=== PATIENT | female | born 1975 | race Caucasian/White ===

== ENCOUNTER 2016-06-03 07:49 | Day surgery (SDC) | payer OTHER ==
[~2016-06-03] VITALS: Ht 167.6 cm; Wt 94.1 kg
[2016-06-03] VITALS (9 sets, daily range): BP systolic 92–142; BP diastolic 47–83; PULSE 60–78; RESP 16–20; TEMP 97.4–98.4; O2SAT 97–100
[~2016-06-03 07:49] MED LIST: CIPR500T4 PO; HYDR-3533 PO; METR-1 PO; PROM25TA5 PO
[2016-06-03] MEDS ORDERED: PRIL20CA9 PO (08:10)
[2016-06-03] MEDS ORDERED: SODIUM CHLOR 0.9% 1000 ML IV SCH (08:15)
[2016-06-03] MEDS ORDERED: LIDOCAINE 1%/EPINEPHrine 1:100,000 SOLN 20 ML VIAL ONE (08:29)
[2016-06-03] MEDS ORDERED: fentaNYL CITRATE 250 MCG/5 ML AMP ONE (09:01)
[2016-06-03] MEDS ORDERED: MIDAZOLAM HCL 5 MG/5 ML VIAL ONE (09:01)
[2016-06-03] MEDS ORDERED: HYDROmorphone HCL 2 MG TAB PO PRN (09:15)
--- NOTE | 2016-06-03 09:24 | PD.RAD ---
Post CT Procedure Prog Note Pre Procedure Diagnosis: (1) Abnormal LFTs (liver function tests) Post Procedure Diagnosis: (1) Abnormal LFTs (liver function tests) Procedure Date: Jun 03, 2016 Supervising Radiologist: Yair Guerra Estimated blood loss: 0 Anesthesia: Conscious Sedation Plan of Activity [facility] Patient Condition: Good See PACS Report for procedural detail/treatment Biopsy Imaging Guidance: CT Side: Right Biopsy Procedure: Liver Specimen: Core Biopsy Plan [facility] Brown Steven G. MD Jun 03, 2016 09:24
--- NOTE | 2016-06-03 11:18 | RADRPT ---
EXAM DATE/TIME: 06/03/2016 09:05 [facility] COMPARISON: No previous studies available for comparison. INDICATIONS : Elevated liver function and antimitochondrial antibody. SEDATION TIME: 30 minutes BIOPSY SITE: Right MEDICATION(S): 1.) 2 mg midazolam (Versed) IV 2.) 100 mcg fentanyl (Sublimaze) IV DEVICE(S): 1.) 18 gauge BioPince needle MEDICAL HISTORY : None. SURGICAL HISTORY : None. ENCOUNTER: Initial ACUITY: 1 day PAIN SCORE: 0/10 LOCATION: Right A total of one core specimen(s) were obtained and sent to the laboratory for pathologic evaluation. PROCEDURE: 1. CT guided liver biopsy. 2. Conscious sedation with continuous EKG and oximetry monitoring. 3. EKG and oximetry remained stable throughout the procedure. Prior to the procedure informed consent was obtained. Any appropriate prior imaging studies were rev iewed. The site was prepped in a sterile fashion. Full sterile technique was used, including cap, mask, kael rile gloves and gown and a large sterile sheet. Hand hygiene and 2% chlorhexidine and/or betadine/al cohol prep was utilized per protocol for cutaneous antisepsis. The skin and subcutaneous tissues wer e infiltrated with local anesthetic solution. Under CT guidance 18 gauge core was obtained. Follow-up CT scan reveals no hemorrhage. The patient tolerated the procedure well and there were no complications. The patient was returned to the Radiology Outpatient Unit in stable condition. CONCLUSION: Uncomplicated CT guided biopsy. Yair Guerra MD FACR on June 03, 2016 at 11:17 Board Certified Radiologist. This report was verified electronically.
== END 2016-06-03 15:05 | disposition home or self-care (01) ==
LOC: HRIP 07:49 → HRAD 07:49 → EDSTATUS 08:00 → HRAD 15:05
PROVIDERS: ATTEND Internal Medicine Gastroenterology
DX: R76.8 Other specified abnormal immunological findings in serum (principal)
CPT/HCPCS: 47000; 77012; 88307; 88313; J2250; J3010; J7030

== ENCOUNTER 2016-07-14 18:55 | Emergency (ER) | payer MEDICAID, OTHER ==
[~2016-07-14] VITALS: Ht 160 cm; Wt 94.7 kg
[~2016-07-14 18:55] MED LIST changes: -CIPR500T4 PO; -HYDR-3533 PO; -METR-1 PO; +PRIL20CA9 PO; -PROM25TA5 PO
[2016-07-14 19:08] VITALS: BP 151/86; PULSE 68; RESP 18; TEMP 97.1; O2SAT 100
--- NOTE | 2016-07-14 21:44 | PD ---
HPI Chief Complaint: GI Complaint Time Seen by Provider: 21:31 Travel History International Travel<30 days: No Contact w/Intl Traveler<30days: No Traveled to known affect area: No History of Present Illness HPI This 41-year-old female is complaining of severe abdominal pain. She says she had some bad abdominal pain yesterday. It started around 6:00 in apparently resolved around bedtime. Today the pain started 3 and his ongoing. She says at its a level of 10 out of 10. He dislocated in the right side of the epigastric area. There is been no vomiting or diarrhea. She was told when she was in 2013 that she had a gallstone but she has not heard anything about it since. She does see past week on a regular basis. She had endoscopy done about a month ago which she was told was normal. She did have some abnormal liver function tests and had a biopsy of her liver was also normal PFSH Past Medical History Cancer: No Cardiovascular Problems: Yes (AGE 13 MURMUR) Diabetes: No Diminished Hearing: No Gastrointestinal Disorders: Yes ("GALLSTONES") GERD: Yes Hepatitis: No Hiatal Hernia: No Respiratory: No Thyroid Disease: No ?: Not LMP: 07/01/16 Ovarian Cysts: Yes Tubal Ligation: Yes Past Surgical History Section: Yes (X2) Ear Surgery: Yes (BILAT TUBES IN EARS) Gynecologic Surgery: Yes (C SECTION, LEFT OVARIAN CYST) Pacemaker: No Tonsillectomy: Yes Other Surgery: Yes Social History Alcohol Use: Yes (RARE) Tobacco Use: No Substance Use: No Allergies-Medications (Allergen,Severity, Reaction): Coded Allergies: Demerol (Verified Allergy, Severe, 07/14/16) Reported Meds & Prescriptions Reported Meds & Active Scripts Active Reported Prilosec (Omeprazole) 20 Mg Cap 20 Mg PO DAILY Review of Systems General / Constitutional: No: Fever, Chills Eyes: No: Diploplia, Blurred Vision HENT: No: Headaches, Vertigo Cardiovascular: No: Chest Pain or Discomfort, Palpitations Respiratory: No: Cough, Shortness of Breath Gastrointestinal: Positive: Abdominal Pain, No: Hematochezia Genitourinary: No: Frequency, Dysuria Musculoskeletal: No: Myalgias, Arthralgias Skin: No Rash, No Itching Psychiatric: No: Anxiety Physical Exam Narrative GENERAL: Well-developed female SKIN: Warm and dry. HEAD: Atraumatic. Normocephalic. EYES: Pupils equal and round. No scleral icterus. No injection or drainage. ENT: No nasal bleeding or discharge. Mucous membranes pink and moist. NECK: Trachea midline. No JVD. CARDIOVASCULAR: Regular rate and rhythm. No murmur appreciated. RESPIRATORY: No accessory muscle use. Clear to auscultation. Breath sounds equal bilaterally. GASTROINTESTINAL: Abdomen soft, there is some right upper quadrant tenderness without guarding or rigidity MUSCULOSKELETAL: No obvious deformities. No clubbing. No cyanosis. No edema. NEUROLOGICAL: Awake and alert. No obvious cranial nerve deficits. Motor grossly within normal limits. Normal speech. PSYCHIATRIC: Appropriate mood and affect; insight and judgment normal. Data Data Last Documented VS Vital Signs Date Time Temp Pulse Resp B/P Pulse Ox O2 Delivery O2 Flow Rate FiO2 07/14/16 22:44 75 18 116/72 95 Room Air 07/14/16 19:08 97.1 Orders Complete Blood Count With Diff (07/14/16 21:41) Comprehensive Metabolic Panel (07/14/16 21:41) Lipase (07/14/16 21:41) Us Abdomen Gallbladder (07/14/16 21:41) Sodium Chlor 0.9% 1000 Ml Inj (Ns 1000 M (07/14/16 21:45) Ondansetron Inj (Zofran Inj) (07/14/16 21:45) Hydromorphone Pf Inj (Dilaudid Pf Inj) (07/14/16 21:45) Labs Laboratory Tests Test 07/14/16 22:05 White Blood Count 8.6 TH/MM3 Red Blood Count 4.34 MIL/MM3 Hemoglobin 12.6 GM/DL Hematocrit 36.4 % Mean Corpuscular Volume 84.0 FL Mean Corpuscular Hemoglobin 29.1 PG Mean Corpuscular Hemoglobin 34.7 % Concent Red Cell Distribution Width 13.0 % Platelet Count 265 TH/MM3 Mean Platelet Volume 8.6 FL Neutrophils (%) (Auto) 81.2 % Lymphocytes (%) (Auto) 13.9 % Monocytes (%) (Auto) 4.4 % Eosinophils (%) (Auto) 0.2 % Basophils (%) (Auto) 0.3 % Neutrophils # (Auto) 7.0 TH/MM3 Lymphocytes # (Auto) 1.2 TH/MM3 Monocytes # (Auto) 0.4 TH/MM3 Eosinophils # (Auto) 0.0 TH/MM3 Basophils # (Auto) 0.0 TH/MM3 CBC Comment DIFF FINAL Differential Comment Sodium Level 141 MEQ/L Potassium Level 3.7 MEQ/L Chloride Level 105 MEQ/L Carbon Dioxide Level 27.6 MEQ/L Anion Gap 8 MEQ/L Blood Urea Nitrogen 6 MG/DL Creatinine 0.85 MG/DL Estimat Glomerular Filtration 74 ML/MIN Rate Random Glucose 114 MG/DL Calcium Level 8.7 MG/DL Total Bilirubin 0.8 MG/DL Aspartate Amino Transf 174 U/L (AST/SGOT) Alanine Aminotransferase 133 U/L (ALT/SGPT) Alkaline Phosphatase 309 U/L Total Protein 7.6 GM/DL Albumin 3.7 GM/DL Lipase 93 U/L [facility] Medical Decision Making Medical Screen Exam Complete: Yes Emergency Medical Condition: Yes Medical Record Reviewed: Yes Differential Diagnosis Differential includes cholelithiasis, cholecystitis, ulcer disease Narrative Course Ultrasound shows multiple gallstones. There is some mild elevation of her transaminases which has been present for some time and which led to a liver biopsy not too long ago. Patient is stable for discharge with instructions to call Gen. surgery for follow-up Diagnosis Primary Impression: Cholelithiasis Qualified Code: K80.20 - Calculus of gallbladder without cholecystitis without obstruction Scripts Oxycodone-Acetaminophen (Percocet)7.5-325 mg Tab1 Tab PO Q4H PRN (PAIN) #20 TAB Ref 0 Prov:Kelvin Thomson MD 07/14/16 Disposition: DISCHARGE HOME Condition: Stable Kelvin Thomson MD Jul 14, 2016 21:44
[2016-07-14] MEDS ORDERED: HYDROmorphone HCL PF 1 MG/ML VIAL IV PUSH ONE (21:45)
[2016-07-14] MEDS ORDERED: ONDANSETRON HCL 4 MG/2 ML VIAL IV PUSH ONE ×2 (21:45→23:45)
[2016-07-14] MEDS ORDERED: SODIUM CHLOR 0.9% 1000 ML INJ 1,000 ML IV SCH (21:45)
[2016-07-14 22:18] LABS: BASOPHIL % 0.3 % (0.0-2.0); EOSINOPHIL % 0.2 % (0.0-4.0); HEMATOCRIT 36.4 % (35.0-46.0); HEMO FLAGS DIFF FINAL; LYMPH % 13.9 % (9.0-44.0); LYMPHOCYTE # 1.2 TH/MM3 (1.0-4.8); MEAN CORPUSCULAR HEMOGLOBIN 29.1 PG (27.0-34.0); MEAN CORPUSCULAR HGB CONC 34.7 % (32.0-36.0); MONO % 4.4 % (0.0-8.0); NEUT % 81.2 % (16.0-70.0); PLATELET COUNT 265 TH/MM3 (150-450); RED BLOOD COUNT 4.34 MIL/MM3 (4.00-5.30); WHITE BLOOD COUNT 8.6 TH/MM3 (4.0-11.0)
[2016-07-14 22:25] LABS: CHLORIDE 105 MEQ/L (98-107); POTASSIUM 3.7 MEQ/L (3.5-5.1); SODIUM (NA) 141 MEQ/L (136-145)
[2016-07-14 22:29] LABS: ANION GAP 8 MEQ/L (5-15); BICARBONATE 27.6 MEQ/L (21.0-32.0)
[2016-07-14 22:30] LABS: BLOOD UREA NITROGEN 6 MG/DL (7-18)
[2016-07-14 22:32] LABS: ALT (GPT) 133 U/L (10-53); AST (GOT) 174 U/L (15-37); GLOMERULAR FILTRATION RATE 74 ML/MIN (>89)
[2016-07-14 22:34] LABS: TOTAL BILIRUBIN ADULT 0.8 MG/DL (0.2-1.0)
[2016-07-14 22:35] LABS: ALKALINE PHOSPHATASE 309 U/L (45-117)
[2016-07-14 22:44] VITALS: BP 116/72; PULSE 75; RESP 18; O2SAT 95
--- NOTE | 2016-07-14 22:55 | RADHPO ---
EXAM DATE/TIME: 07/14/2016 22:31 [facility] COMPARISON: CT ABDOMEN & PELVIS W CONTRAST, December 10, 2015, 19:02. INDICATIONS : Right upper quadrant pain. MEDICAL HISTORY : Gastroesophageal reflux disease. Cholelithiasis. Ovarian cysts. SURGICAL HISTORY : Tonsillectomy. section. Tubal ligation. Left ovarian cyst removed. ENCOUNTER: Initial ACUITY: 2 days PAIN SCORE: 8/10 LOCATION: Right upper quadrant MEASUREMENTS: LIVER: 13.5 cm length COMMON DUCT: 4 mm RIGHT KIDNEY: 9.4 x 5.0 x 6.0 cm FINDINGS: LIVER: Normal echotexture without focal lesion or ductal dilatation. COMMON DUCT: No intraluminal mass or stone visualized. GALLBLADDER: Contains multiple mobile and non-mobile stones near the neck the largest being 2.3 cm in size. Gallbl adder wall is thickened at 4 mm PANCREAS: The visualized portions are within normal limits. RIGHT KIDNEY: No evidence of hydronephrosis, stone, or mass. CONCLUSION: Multiple gallstones. Gallbladder wall thickening at 4 mm. No bile duct dilatation Dilan Valero MD on July 14, 2016 at 22:52 Board Certified Radiologist. This report was verified electronically.
[2016-07-14] MEDS ORDERED: PERC7.5T13 PO (23:09)
[2016-07-14 23:47] VITALS: BP 109/68; PULSE 91; RESP 18; O2SAT 96
== END 2016-07-15 00:23 | disposition home or self-care (01) ==
LOC: PHED 18:55
DX: K80.20 Calculus of gallbladder without cholecystitis without obstruction (principal)
CPT/HCPCS: 76705; 80053; 83690; 85025; 96361; 96374; 96375; 96376; 99284; J1170; J2405; J7030

== ENCOUNTER → 2016-09-02 | Day surgery (SDC) | payer OTHER ==
[~2016-09-02] MED LIST changes: +ACETAMINOPHEN 1000 MG/100 ML VIAL IV ONE; +ACETAMINOPHEN/HYDROcodone 325 MG/5 MG TAB ONE; +APREPITANT 40 MG CAP ONE; +BUPIVACAINE/EPINEPHRINE 0.25% 50 ML VIAL ONE; +KETOROLAC TROMETHAMINE 30 MG/ML (IVP) VIAL IV PUSH ONE; +LACTATED RINGER'S 1000 ML INJ 1,000 ML ONE; +MIDAZOLAM HCL 2 MG/2 ML VIAL ONE; +MORPHINE SULFATE 4 MG/ML INJ ONE; +NEOMYCIN/POLYMYXIN/BACITRACIN OINT 15 GM TUBE ONE; +ONDANSETRON HCL 4 MG/2 ML VIAL IV PUSH ONE; +PERC7.5T13 PO; +PROPOFOL 200 MG/20 ML AMP IV ONE; +ceFAZolin 2 GM PREMIX 50 ML ONE; +metroNIDAZOLE 500 MG INJ 100 ML IV ONE
--- NOTE | 2016-09-02 09:44 | TN ---
cc: ARABELLA LOU M.D. DATE OF SURGERY: 09/02/2016 PREOPERATIVE DIAGNOSIS Chronic calculous cholecystitis and verrucous skin lesion left posterior hand. POSTOPERATIVE DIAGNOSES Chronic calculous cholecystitis and verrucous skin lesion left posterior hand. PROCEDURE Laparoscopic cholecystectomy and excision of 8 mm verrucous skin lesion left posterior hand. SURGEON: Arabella Lou MD. ANESTHESIA General INDICATIONS Very pleasant 41-year-old woman who has had several episodes of upper abdominal pain, worse after fatty foods. She required evaluation in the emergency department. Ultrasound showed stones in gallbladder wall thickening. She has had transient elevated liver function test, but not elevated total bilirubin. She incidentally discovered verrucous skin lesion on the posterior left hand. She desired excision. INTRAOPERATIVE FINDINGS The gallbladder with stones removed and sent to pathology. Left posterior hand skin lesion excised and sent to pathology. ESTIMATED BLOOD LOSS: Estimated blood loss was minimal. DESCRIPTION OF PROCEDURE IN DETAIL The patient identified as a Susan Ramon taken to operating room and placed in the supine position. Sequential compression devices placed on bilateral lower extremities. Following induction of adequate general endotracheal anesthesia the patient's abdomen was prepped and draped in usual sterile fashion with Betadine. A time-out procedure was performed. Following completion of time-out procedure to everyone's satisfaction within the room 0.25% Marcaine with epinephrine was placed at each incision site. Infraumbilical 2 cm incision was carried out with scalpel dissection posterior level of midline fascia. The base of the umbilicus was retracted anteriorly. The fascia was incised vertical fashion and entry into the peritoneal cavity is facilitated with surgeon's finger. The applied medical balloon Frederick trocars placed in the peroneal cavity balloon inflated to insufflation to level of 15 mmHg ensued. The patient was placed in a reverse Trendelenburg position turned to left and two upper abdominal 5 mm trocars placed in the peritoneal cavity direct laparoscopic view after incision skin with a scalpel. The gallbladder was immediately identified and had inflammatory adhesions of the omentum stuck to it which were taken down using the harmonic scalpel. The gallbladder is then removed from the gallbladder fossa in a dome down technique using the harmonic scalpel. Cystic artery was isolated from surrounding tissues divided with a harmonic scalpel. The cystic duct was isolated from surrounding tissues and ligated proximally distally with 0-PDS Endoloops. The cystic duct was divided between the Endoloops and the gallbladder removed from the infraumbilical fascial port, incision site passed off field for pathologic evaluation. The right upper quadrant examined the gallbladder fossa was hemostatic. There is no bilious or bloody drainage. The cystic duct ligature remained intact. The cystic arterial stump was hemostatic. Brief survey remainder intra-abdominal contents demonstrated no obvious abnormalities. 20 cc of local anesthetic was placed in subhepatic position. Trocars removed under direct visualization, there was no evidence of bleeding from trocar sites. The area was desufflated through, the infraumbilical port was then removed. The infraumbilical fascial incision was closed with two interrupted [id number] Vicryl sutures. Port sites were irrigated saline closed with 4-0 Monocryl subcuticular sutures. Dressings were applied, Mastisol inch brown Steri-Strips. The patient tolerated this portion of procedure without apparent complication. Attention was turned to the dorsum of the left hand. This area was prepped with Betadine and toweled off in a sterile field created. Local anesthetic was placed beneath the lesion and a small elliptical incision was used to excise in its entirety. It was removed with a scalpel. Pressure was held for hemostasis and the wound was closed with three interrupted 4-0 nylon sutures. Antibiotic ointment, 4x4 and Kwabena completed the dressing. The patient tolerated this portion procedure without apparent complication. Sponge, needle and instrument counts correct at the case. MD NAOMI Mclaughlin/ana /9:12 AM /9:35 AM LI
== END | disposition home or self-care (01) ==
LOC: ESDC 06:30
PROVIDERS: ATTEND Surgery Trauma Surgery
DX: K80.20 Calculus of gallbladder without cholecystitis without obstruction (principal); B07.9 Viral wart, unspecified
CPT/HCPCS: 00400; 00790; 11426; 47562; 88304; 88305; J0131; J0690; J1885; J2250; J2270; J2405; J3010; J7120; J8501